=== PATIENT | male | born 1970 | race Caucasian/White ===

== ENCOUNTER → 2024-11-11 06:45 | Outpatient (REF) | payer OTHER, SELFPAY | LOC: HWRAD 06:45 | PROVIDERS: ATTENDING PHYSICIAN Nurse Practitioner Family; FAMILY PHYSICIAN Family Medicine | DX: R74.8 Abnormal levels of other serum enzymes (principal) | CPT/HCPCS: 76700 ==

== ENCOUNTER → 2025-01-08 09:25 | Outpatient (REF) | payer OTHER, SELFPAY | LOC: RAD 09:25 | PROVIDERS: ATTENDING PHYSICIAN Nurse Practitioner Family | DX: E80.7 Disorder of bilirubin metabolism, unspecified (principal) | CPT/HCPCS: 78226; A9537 ==